=== PATIENT | female | born 1975 | race Caucasian/White ===

== ENCOUNTER 2021-12-20 16:46 | Emergency (ER) | payer BC ==
[2021-12-20 18:16] LABS: #Eosinphils 0.1 10x3/uL (0.0-0.5); #Monocytes 0.7 10x3/uL (0.0-1.1); #Neutrophils 4.9 10x3/uL (1.5-8.4); %Basophils 0.5 % (0.0-2.0); %Eosinophils 1.6 % (0.0-6.0); %Lymphocytes 26.5 % (18.0-47.0); %Monocytes 8.4 % (0.0-10.0); %Neutrophils 62.7 % (40.0-75.0); Hemoglobin 10.4 g/dL (12.0-15.5); Mean Corpuscular HGB CONC 33.1 g/dL (32.0-36.0); Mean Corpuscular Hemoglobin 29.2 pg (27.0-33.0); Mean Corpuscular Volume 88.2 fl (81.6-98.3); Mean Platelet Volume 11.1 fl (7.4-10.4); Platelet Count 232 10x3/uL (150-450); RBC Distribution Width 12.7 % (11.5-14.5); Red Blood Cell (RBC) Count 3.56 10x6/uL (3.90-5.03); White Blood Cell (WBC) Count 7.7 10x3/uL (3.5-10.5)
[2021-12-20 18:27] LABS: ALT (SGPT) 10 U/L (8-55); AST (SGOT) 17 U/L (5-34); Albumin 3.7 g/dL (3.5-5.0); Alkaline Phosphatase 51 U/L (40-110); Anion Gap 13 mmol/L (10-20); BUN (Urea Nitrogen) 10 mg/dL (7.0-18.7); Bilirubin, Total 0.2 mg/dL (0.2-1.2); Calc. Creatinine Clearance 0 mL/min (70-130); Calcium 8.9 mg/dL (7.8-10.44); Carbon Dioxide 25 mmol/L (22-29); Chloride 107 mmol/L (98-107); Globulin 2.4 g/dL (2.4-3.5); Glucose 86 mg/dL (70-105); Potassium 3.8 mmol/L (3.5-5.1); Protein, Total 6.1 g/dL (6.0-8.3); Sodium 141 mmol/L (136-145)
== END 2021-12-20 18:45 | disposition home or self-care (01) ==
LOC: CSHERS 16:46
DX: R00.2 Palpitations (principal)
CPT/HCPCS: 71045; 80053; 84484; 85025; 93005

== ENCOUNTER 2022-05-09 14:47 | Outpatient (CLI) | payer BC | END 2022-05-09 14:48 | disposition home or self-care (01) | LOC: CSHMAMMO 14:47 | PROVIDERS: ATTEND Internal Medicine | DX: Z12.31 Encounter for screening mammogram for malignant neoplasm of breast (principal); Z85.850 Personal history of malignant neoplasm of thyroid | CPT/HCPCS: 77063; 77067 ==

== ENCOUNTER 2023-02-16 19:53 | Emergency (ER) | payer BC ==
[2023-02-16 20:14] LABS: Bilirubin Neg (Negative); Blood, Urine 250 (Negative); Clarity Cloudy (Clear); Glucose, Urine (Dipstick) Normal (Negative); Ketone, Urine 5 mg/dL (Negative); Leukocyte 100 (Negative); Nitrite Negative (Negative); Protein, Urine (Dipstick) 100 mg/dl (Neg-Trace); Urobilinogen Normal mg/dL (Less than 2)
[2023-02-16 20:23] LABS: Bacteria/HPF 4+ HPF (None Seen); CAUTI Indications for Culture Pelvic or flank pain; Squamous Epithelial 0-3 HPF (0-3)
[2023-02-16 20:24] LABS: Urine Culture Reflex Yes Yes
[2023-02-16 20:31] LABS: #Basophils 0.1 10x3/uL (0.0-0.2); #Eosinphils 0.1 10x3/uL (0.0-0.5); #Neutrophils 7.3 10x3/uL (1.5-8.4); %Basophils 0.5 % (0.0-2.0); %Eosinophils 0.8 % (0.0-6.0); %Lymphocytes 23.2 % (18.0-47.0); %Monocytes 9.3 % (0.0-10.0); %Neutrophils 65.9 % (40.0-75.0); Hemoglobin 11.9 g/dL (12.0-15.5); Mean Corpuscular Volume 82.4 fl (81.6-98.3); Mean Platelet Volume 10.3 fl (7.4-10.4); Platelet Count 360 10x3/uL (150-450); RBC Distribution Width 12.2 % (11.5-14.5); Red Blood Cell (RBC) Count 4.25 10x6/uL (3.90-5.03); White Blood Cell (WBC) Count 11.1 10x3/uL (3.5-10.5)
[2023-02-16 20:44] LABS: ALT (SGPT) 13 U/L (8-55); AST (SGOT) 27 U/L (5-34); Albumin 4.4 g/dL (3.5-5.0); Alkaline Phosphatase 87 U/L (40-110); Anion Gap 17 mmol/L (10-20); BUN (Urea Nitrogen) 18 mg/dL (7.0-18.7); Bilirubin, Total 0.2 mg/dL (0.2-1.2); Calc. Creatinine Clearance 0 mL/min (70-130); Calcium 9.3 mg/dL (7.8-10.44); Carbon Dioxide 21 mmol/L (22-29); Chloride 106 mmol/L (98-107); Estimated GFR 52; Globulin 3.4 g/dL (2.4-3.5); Glucose 94 mg/dL (70-105); Potassium 3.3 mmol/L (3.5-5.1); Protein, Total 7.8 g/dL (6.0-8.3); Sodium 141 mmol/L (136-145)
[2023-02-16] MEDS ORDERED: Ondansetron PF 4 MG/2 ML Vial ONE (22:59)
[2023-02-16] MEDS ORDERED: Ketorolac Tromethamine 30 MG/ML VIAL ONE (22:59)
[2023-02-16] MEDS ORDERED: cefTRIAXone (ROCEPHIN) 2 GM VIAL ONE (22:59)
== END 2023-02-17 00:45 | disposition home or self-care (01) ==
LOC: CSHERS 19:53
DX: N10 Acute pyelonephritis (principal); F17.290 Nicotine dependence, other tobacco product, uncomplicated
CPT/HCPCS: 36415; 71045; 74176; 80053; 81001; 83605; 85025; 87086; 93005; 96365; 96375; J0696; J1885; J2405